=== PATIENT | female | born 1980 | race Caucasian/White ===

== ENCOUNTER 2016-08-24 12:50 | Emergency (ER) | payer MEDICAID ==
[~2016-08-24] VITALS: Ht 157.5 cm; Wt 68.0 kg
[2016-08-24 12:54] VITALS: Ht 157.5 cm; Wt 68.0 kg
[2016-08-24] MEDS ORDERED: KETOROLAC 30 MG INJ IM STA (13:10)
--- NOTE | 2016-08-24 13:10 | ERD ---
ER Documentation Chief Complaint Date/Time DATE: 08/24/16 TIME: 13:09 Chief Complaint pt bib family with c/o right knee/leg pain s/p falling yesterday, NO KO HPI 34-year-old female presents to the emergency department for right knee pain. Stated that this happened after she tripped and fell, landed on her right knee at around 1 AM today after she left a republican. Pain was described as achy nonradiating. Stated she is not able to bear weight on the right side of her lower extremity. Stated that the Tylenol tablet that she took did not relieve her pain. Denies headache, head injury, loss of consciousness, dizziness, blurry vision, changes in vision, photophobia, facial pain, ear pain, throat pain, difficulty swallowing, neck pain, shoulder pain, chest pain, cough, hemoptysis, abdominal pain, back pain, loss of appetite, nausea, vomiting, hematochezia, diarrhea, constipation, urinary symptoms, , the possibility of being , bladder and bowel incontinences, numbness or tingling sensation, difficulty walking, recent travel, recent exposure to illness, recent antibiotic use in the last 3 months, fever, chills. Allergy: No known drug allergies. PMH: No past medical history. Family medical history: Denies. AO LMP: August 20, 2016. Medications: Not on any prescription medication. 2. Surgery: Denies. Primary Social History: Not working at this time. Denies smoking, use of alcohol, use of illegal drugs. Not exposed to secondhand smoking. ROS All systems reviewed and are negative except as per history of present illness. Allergies Allergies: Coded Allergies: No Known Allergy (Unverified , 08/24/16) Physical Exam Vitals Vital Signs Date Time Temp Pulse Resp B/P Pulse Ox O2 Delivery O2 Flow Rate FiO2 08/24/16 12:54 98.0 62 16 122/64 98 Physical Exam CONSTITUTIONAL: Well-appearing; well-nourished; in no apparent distress. HEAD: Normocephalic; atraumatic. EYES: Conjunctiva clear, sclera non-icteric, EOM intact. PERRL Ears: Hearing intact. EACs clear, TMs non-bulging, non-inflamed, translucent & mobile, ossicles normal appearance, No obstructions, no erythema, no discharges Nose: No obstructions. No polyps. No external lesions. Mucosa non-inflamed. No external lesions, septum and turbinates normal. No rhinorrhea. No discharges. Frontal sinus is non-tender to palpation. Maxillary sinus is non-tender to palpation. MOUTH: Moist mucous membranes, no lesion, no obstructions, no vesicles, no thrush, patent airway Throat: Uvula in midline. Right tonsil is +1 with no erythema, no exudate. Left tonsil is +1 with no erythema, no exudate. Tolerating secretions well. Good gag reflex. Patent airway. Neck: Supple, without lesions, bruits, or adenopathy. No mass. Thyroid non- enlarged and non-tender to palpation. CHEST: Symmetrical chest. Respirations even and not labored. No retractions noted. CARDIOVASCULAR: Normal S1, S2. RRR. No murmurs, gallops. RESPIRATORY: Normal chest excursion with respiration; breath sounds clear and equal bilaterally; no wheezes, rhonchi, or rales. Breathing even and unlabored. Speaking in clear, full, and complete sentences w/ ease. ABDOMEN: Normal bowel sounds normal. Soft, round, non-distended, non-guarding, no tenderness, no rebound, no organomegaly, no masses, no pulsating abdominal mass. No hernia. No peritoneal signs. : No CVA tenderness. BACK: Symmetrical shoulder. Spine is midline without deformity, tenderness. No evidence of trauma or deformity. PELVIS: Stable pelvis. No evidence of trauma or deformity. MUSCULOSKELETAL: Normal gait and station. No misalignment, asymmetry, crepitation, defects, tenderness, masses, effusions, decreased range of motion, instability, atrophy or abnormal strength or tone in the head, neck, spine, ribs , pelvis or extremities. Bilateral hips are unremarkable. Left knee/left foot/ ankle are unremarkable. Right knee has no obvious deformity/discoloration. But mild swelling and when tenderness to medial area on palpation. Right ankle/ foot is unremarkable. Circulation sensation is intact. No neurovascular deficits. No calf tenderness. NEUROVASCULAR: Distal pulses are present. Pedal pulse are present, equal, and normal. Capillary refills are < 2 seconds. NEUROLOGIC: Alert and oriented x4. Speaks full and clear sentences. Cranial Nerves II-XII normal. Sensation to pain, touch, and proprioception normal. Grossly unremarkable. No neurologic deficits. Romberg test is negative. PSYCHOLOGICAL: The patients mood and manner are appropriate. No hallucinations , delusions. Not SI. Not HI. Has the capacity to decide for self SKIN: Normal for age and ethnicity; warm; dry; good turgor; no apparent lesions or exudates. No rashes, hives, discoloration. Intact. Results 24 hrs Current Medications Medications (Trade) Dose Ordered Sig/Get Route PRN Reason Start Time Stop Time Status Last Admin Dose Admin Ketorolac Tromethamine (Toradol) 30 mg ONCE STAT IM 08/24/16 13:10 08/24/16 13:12 DC 08/24/16 13:23 Procedures/MDM Examination: Please see physical examination. Disease process, medical treatment was explained to the patient and family member. They verbalized understanding and agreed with the diagnostic tests, medical treatment, and follow-up care. Radiology: X-ray of the right knee. Findings: There is no acute fracture. Alignment is normal. Small medial femoral tibial compartment osteophytes are noted. There is a trace of joint effusion. Impression: No radiographic evidence of acute osseous abnormality. POC urine : Negative. Treatment: Toradol IM. Jeison wrap. Crutches provided. Crutch training provided. No neurovascular deficits prior to and after the application of Jeison wrap. Re-evaluation: Denies headache, dizziness, blurry vision, neck pain, shoulder pain, chest pain, back pain, abdominal pain, nausea, vomiting. No episode of emesis here in the emergency department. Has good range of motion of neck and spine without discomfort. No neurovascular deficits. No neurological deficits. Consultation: None. Differential diagnosis: Fracture versus dislocation versus contusion versus sprain Medical decision makin-year-old female presents to the emergency department for right knee pain. Stated that this happened after she tripped and fell, landed on her right knee at around 1 AM today after she left a republican. Pain was described as achy nonradiating. Stated she is not able to bear weight on the right side of her lower extremity. Stated that the Tylenol tablet that she took did not relieve her pain. Patient's complaint, patient's history about her complaint, my physical findings, diagnostic test results, my reevaluation are consistent with my final diagnosis of right knee injury/right knee pain. Medications prescribed are the following: Motrin. Patient and family member are made aware of the side effects and adverse reactions of the medications prescribed. Instructed on when to seek emergent and medical attention in case allergic/anaphylactic reactions or severe side effects and or adverse reactions to medications. Patient and family member verbalized understanding. Patient instructed Instructed to follow-up with his PCP in 24-48 hours. Instructed to Call 911 for chest pain, shortness of breath. Advised to come back here in ED as soon as possible for severity of symptoms which includes but not limited to: any new symptoms; shortness of breath/difficulty of breathing; cardiovascular changes; severe gastrointestinal symptoms; signs and symptoms of bleeding and or infection; signs of compartment syndrome/neurovascular changes; neurological changes/deficits. Patient and family member verbalized understanding. Upon discharge, patient is alert and oriented x 4, speaks full and clear sentences, denies pain, has no neurological deficits, has no neurovascular deficits, difficulty of breathing. Breathing even and unlabored. Lung sounds are clear to auscultation. Not in distress. Appears comfortable. Appears satisfied with care provided here in ED. Departure Diagnosis: Primary Impression: Knee injury Additional Impression: Knee pain Condition: Good Additional Instructions: Patient instructed Instructed to follow-up with his PCP in 24-48 hours. Instructed to Call 911 for chest pain, shortness of breath. Advised to come back here in ED as soon as possible for severity of symptoms which includes but not limited to: any new symptoms; shortness of breath/difficulty of breathing; cardiovascular changes; severe gastrointestinal symptoms; signs and symptoms of bleeding and or infection; signs of compartment syndrome/neurovascular changes; neurological changes/deficits. Patient and family member verbalized understanding. ROXANA PARADA August 24, 2016 13:10
--- NOTE | 2016-08-24 13:39 | RADRPT ---
PROCEDURE: XR Knee. CLINICAL INDICATION: Right knee pain TECHNIQUE: 3 images of the right knee are available for review. COMPARISON: None available FINDINGS: There is no acute fracture. Alignment is normal. Small medial femorotibial compartment osteophytes are noted. There is a trace joint effusion. IMPRESSION: 1. No radiographic evidence of acute osseous abnormality. RPTAT: UU .Ross Clifton MD, MD Date Time Electronically viewed and signed by .Ross Clifton MD, on 08/24/2016 13:39 .K/
[2016-08-24] MEDS ORDERED: IBUP-1542 PO (13:54)
== END 2016-08-24 14:21 | disposition home or self-care (01) ==
LOC: FTE 12:50
DX: S89.91XA Unspecified injury of right lower leg, initial encounter (principal); W01.0XXA Fall on same level from slipping, tripping and stumbling without subsequent striking against object, initial encounter; Y92.9 Unspecified place or not applicable
CPT/HCPCS: 73562; 96372; J1885; Z7502

== ENCOUNTER 2017-03-13 15:51 | Emergency (ER) | payer MEDICAID ==
[~2017-03-13] VITALS: Ht 157.5 cm; Wt 78.7 kg
[~2017-03-13 15:51] MED LIST: IBUP-1542 PO
[2017-03-13 16:07] VITALS: Ht 157.5 cm; Wt 78.7 kg
[2017-03-13] MEDS ORDERED: D-ME473S2 PO (19:20)
[2017-03-13] MEDS ORDERED: BENZ200C43 PO (19:20)
[2017-03-13] MEDS ORDERED: AZIT250T94 PO (19:20)
--- NOTE | 2017-03-13 19:29 | ERD ---
ER Documentation Chief Complaint Chief Complaint Complains of a cough x 3 days with flulike symptoms HPI This patient is a 36-year-old female presented to the emergency department with complaints of intermittent headache and cough for 1 week. She denies sick contacts. Associated symptoms include tactile fevers and sore throat. Symptoms are worsening. She denies other symptoms at this time. ROS All systems reviewed and are negative except as per history of present illness. Medications Home Meds Active Scripts Benzonatate* (Benzonatate*) 200 Mg Capsule, 200 MG PO TID Y for COUGH, #20 CAP Prov:MARTINE NGUYEN PA-C 03/13/17 Dextromethorphan Hb-Promethazine Hcl* (Promethazine DM* Syrup) 473 Ml Syrup, 5 ML PO Q6 Y for COUGH, #120 ML Prov:MARTINE NGUYEN PA-C 03/13/17 Azithromycin* (Zithromax*) 250 Mg Tablet, 250 MG PO .ZPACK DIRECTED, #6 TAB TAKE 500 MG (2 TABS) THE FIRST DAY THEN 250 MG (1 TAB) DAYS 2-5 Prov:MARTINE NGUYEN PA-C 03/13/17 Ibuprofen* (Motrin*) 600 Mg Tab, 600 MG PO Q8, #30 TAB Prov:ROXANA PARADA 08/24/16 Allergies Allergies: Coded Allergies: No Known Allergy (Unverified , 08/24/16) PMhx/Soc Medical and Surgical Hx: pt denies Medical Hx, pt denies Surgical Hx Hx Alcohol Use: No Hx Substance Use: No Hx Tobacco Use: No Smoking Status: Never smoker Physical Exam Vitals Vital Signs Date Time Temp Pulse Resp B/P Pulse Ox O2 Delivery O2 Flow Rate FiO2 03/13/17 16:07 98.3 82 20 153/82 97 Physical Exam Const: Nontoxic, well-appearing female in no acute distress. Head: Atraumatic Eyes: Normal Conjunctiva ENT: Normal External Ears, Nose and Mouth. Neck: Full range of motion..~ No meningismus. Resp: Mild inspiratory rhonchi noted to bilateral upper lung bridges. No wheezing. No signs of respiratory distress. No crackles. Cardio: Regular rate and rhythm, no murmurs Skin: No petechiae or rashes Back: No midline or flank tenderness Ext: No cyanosis, or edema Neur: Awake and alert Psych: Normal Mood and Affect Procedures/MDM This is a pleasant 36-year-old female presented to the emergency department with complaints of intermittent cough and headache. History and physical examination is consistent with uncomplicated bronchitis per the patient is appropriate and stable for outpatient management with prescriptions. Low suspicion for pneumonia, aortic dissection, pneumothorax, pulmonary embolism, or other emergencies. No evidence of life-threatening pathology at time of discharge. Pt/family in agreement with discharge plan/diagnosis. Pt/family advised to return immediately with any new or worsening symptoms. Follow-up with primary care physician within the next 1-2 days. Departure Diagnosis: Primary Impression: Bronchitis Additional Impression: Cough Condition: Fair Patient Instructions: Cough, Chronic, Uncertain Cause, (Adult) Referrals: [facility] YOU HAVE RECEIVED A MEDICAL SCREENING EXAM AND THE RESULTS INDICATE THAT YOU DO NOT HAVE A CONDITION THAT REQUIRES URGENT TREATMENT IN THE EMERGENCY DEPARTMENT. FURTHER EVALUATION AND TREATMENT OF YOUR CONDITION CAN WAIT UNTIL YOU ARE SEEN IN YOUR DOCTORS OFFICE WITHIN THE NEXT 1-2 DAYS. IT IS YOUR RESPONSIBILITY TO MAKE AN APPOINTMENT FOR FOLOW-UP CARE. IF YOU HAVE A PRIMARY DOCTOR --you should call your primary doctor and schedule an appointment IF YOU DO NOT HAVE A PRIMARY DOCTOR YOU CAN CALL OUR PHYSICIAN REFERRAL HOTLINE AT IF YOU CAN NOT AFFORD TO SEE A PHYSICIAN YOU CAN CHOSE FROM THE FOLLOWING [facility] [address] [facility]. [facility] [address] [facility] [facility] [address] [facility] [facility] [address] [facility] [facility] [address] [facility]. [facility]. [address] Additional Instructions: Call your primary care doctor TOMORROW for an appointment during the next 1-2 days.See the doctor sooner or return here if your condition worsens before your appointment time. MARTINE NGUYEN PA-C Mar 13, 2017 19:29
== END 2017-03-13 20:03 | disposition home or self-care (01) ==
LOC: FTE 15:51
DX: J20.9 Acute bronchitis, unspecified (principal); R51 Headache
CPT/HCPCS: 99284

== ENCOUNTER 2018-01-08 11:59 | Emergency (ER) | END 2018-01-08 15:39 | disposition home or self-care (01) ==